=== PATIENT | male | born 1975 | race Hispanic/Latino ===

== ENCOUNTER 2018-01-25 09:55 | Emergency (ER) | payer MEDICAID | END 2018-01-25 10:33 | disposition home or self-care (01) | LOC: EDH 09:55 | DX: J02.9 Acute pharyngitis, unspecified (principal); E78.5 Hyperlipidemia, unspecified; I10 Essential (primary) hypertension; I25.2 Old myocardial infarction; Z87.891 Personal history of nicotine dependence ==

== ENCOUNTER 2018-10-18 17:03 | Emergency (ER) | payer MEDICAID ==
[2018-10-18] MEDS ORDERED: LIDOCAINE 1%-EPI 1:100,000 20 ML VIAL IJ ONE (17:23)
[2018-10-18] MEDS ORDERED: TETANUS/DIPHTHERIA TOXOID [ADULT] 0.5 ML VIAL IM ONE (17:24)
== END 2018-10-18 18:24 | disposition home or self-care (01) ==
LOC: EDH 17:03
DX: S51.011A Laceration without foreign body of right elbow, initial encounter (principal); S61.217A Laceration without foreign body of left little finger without damage to nail, initial encounter; E78.5 Hyperlipidemia, unspecified; I10 Essential (primary) hypertension; I25.2 Old myocardial infarction; Z87.891 Personal history of nicotine dependence; X99.1XXA Assault by knife, initial encounter; Y93.89 Activity, other specified; Y92.098 Other place in other non-institutional residence as the place of occurrence of the external cause; Y99.8 Other external cause status
CPT/HCPCS: 12031; 12042; 73070; 73130; 90471; 90714; 99284; J3490

== ENCOUNTER 2020-08-09 02:39 | Emergency (ER) | payer MEDICAID ==
[2020-08-09] MEDS ORDERED: ACETAMINOPHEN EXTRA STRENGTH 500 MG TABLET ONE (03:15)
== END 2020-08-09 03:29 | disposition home or self-care (01) ==
LOC: EDH 02:39
DX: S93.401A Sprain of unspecified ligament of right ankle, initial encounter (principal); E78.5 Hyperlipidemia, unspecified; I10 Essential (primary) hypertension; I25.2 Old myocardial infarction; Z87.891 Personal history of nicotine dependence; W45.8XXA Other foreign body or object entering through skin, initial encounter; Y93.89 Activity, other specified; Y92.89 Other specified places as the place of occurrence of the external cause; Y99.8 Other external cause status
CPT/HCPCS: 73600